=== PATIENT | male | born 1955 | race Caucasian/White ===

== ENCOUNTER 2019-10-18 17:51 | Inpatient (IN) | payer MEDICARE, OTHER ==
[~2019-10-18] VITALS: Ht 170.2 cm; Wt 81.6 kg
[2019-10-18] MEDS ORDERED: AMLO5TAB9 PO (18:26)
[2019-10-18] MEDS ORDERED: IBUP-1955 PO (18:26)
[2019-10-18] MEDS ORDERED: LORA-259 PO (18:26)
[2019-10-18] MEDS ORDERED: SERT50TA PO (18:26)
[2019-10-18] MEDS ORDERED: LOSA100T31 PO (18:26)
[2019-10-18] MEDS ORDERED: MELO-107 PO (18:26)
[2019-10-18] MEDS ORDERED: DIVA-76 PO (18:26)
[2019-10-18] MEDS ORDERED: QUET300T2 PO (18:26)
[2019-10-18 19:02] LABS: BASOPHILS # (AUTO) 0.1 /CMM (0.0-0.2); BASOPHILS % (AUTO) 1.2 % (0.0-2.0); EOSINOPHILS % (AUTO) 2.8 % (0.0-6.0); HEMATOCRIT 31 % (39-51); LYMPHOCYTES # (AUTO) 1.8 /CMM (0.8-4.8); LYMPHOCYTES % (AUTO) 20.8 % (20.0-44.0); MEAN CORPUSCULAR HGB CONC 32 g/dl (31.0-36.0); MEAN CORPUSCULAR VOLUME 88 fL (80-96); MONOCYTES # (AUTO) 0.6 /CMM (0.1-1.30); NEUTROPHILS % (AUTO) 68.2 % (43.0-81.0); PLATELET COUNT (AUTO) 265 /CMM (150-450); RED BLOOD CELL COUNT(AUTO) 3.59 MIL/uL (4.5-6.0); WHITE BLOOD COUNT (AUTO) 8.8 K/uL (4.3-11.0)
[2019-10-18 19:14] LABS: CALCIUM, SERUM 8.9 mg/dL (8.5-10.1); CREATININE 0.7 mg/dL (0.6-1.3); POTASSIUM 4.2 mmol/L (3.5-5.1); SALICYLATE 2.2 mg/dL (2.8-20.0)
[2019-10-18] MEDS ORDERED: QUETIAPINE FUMARATE 100 MG TABLET PO SCH (19:30)
[2019-10-18] MEDS ORDERED: QUETIAPINE FUMARATE 25 MG TABLET ONE (19:37)
--- NOTE | 2019-10-18 19:45 | NUR ---
PT BIB [facility] FOR MEDICAL EVAL FOR [facility] ADMIT. ON 5150 FOR DTO/GD. PT YELLING UPON ARRIVAL. PT ALERT AND AWAKE, NO ACUTE DISTRESS NOTED. CONNECTED TO THE MONITOR AND POX
--- NOTE | 2019-10-18 20:25 | NUR ---
BED ASSIGNMENT 214-2
--- NOTE | 2019-10-18 20:32 | NUR ---
REPORT GIVEN TO LIANET MATT
[2019-10-18 20:42] LABS: APPEARANCE,URINE Clear (CLEAR); BILIRUBIN,URINE Negative (NEGATIVE); BLOOD, URINE Negative Ery/uL (NEGATIVE); COLOR,URINE Yellow (YELLOW); KETONES,URINE Negative (NEGATIVE); LEUKOCYTE ESTERASE ,URINE Negative (NEGATIVE); NITRITE, URINE Negative (NEGATIVE); PH,URINE 7.5 (5.0-8.0); PROTEIN,URINE Negative (NEGATIVE); UGLUCOSE Negative (NEGATIVE); UROBILINOGEN,URINE 0.2 EU/dL (0.2)
--- NOTE | 2019-10-18 21:23 | NUR ---
PT TRANSFERRED TO [facility] IN STABLE CONDITION
[2019-10-18] MEDS ORDERED: ACETAMINOPHEN 325 MG TABLET PO PRN (22:00)
[2019-10-18] MEDS ORDERED: MAGNESIUM HYDROXIDE 30 ML UDC PO PRN (22:00)
[2019-10-18] MEDS ORDERED: MAG HYDROX/AL HYDROX/SIMETH 30 ML UDC PO PRN (22:00)
[2019-10-18] MEDS ORDERED: IBUPROFEN 600 MG TABLET PO PRN (23:00)
[2019-10-18] MEDS ORDERED: BLOOD SUGAR DIAGNOSTIC 1 EACH STRIP IN ONE (23:00)
[2019-10-18 23:17] VITALS: BP 129/74
--- NOTE | 2019-10-18 23:26 | NUR ---
ADMISSION NOTES: ADMITTED THIS 64Y/O MALE PATIENT ADMIT FROM [facility] / [facility] FROM [facility], ADMITTED TO [facility] ON 5150 HOLD, PER HOLD GRAVELY DISABLE , DTO, AND ACTING OUT AGGRESSIVE TOWARDS STAFF AND OTHER RESIDENTS, PT HAS BEEN CONFUSED THREATENING TOWARDS OTHERS .PT. HAS BEEN REFUSING CARE FROM CAREGIVERS, PT. HAS TROUBLE FOLLOWING STAFF INSTRUCTUSIONS ,UPON FACE TO FACE ASSESSMENT PATIENT IS A&O X2 , AGGRESSIVE ,DISHELVED,PARNOID, CONFUSED , ,DISORGNIZED, UNCOOPERTIVE ,EASILY GETS AGITATED, DENIES SI /HI AT THIS TIME, PT. IS POOR HISTORIAN, POOR INSIGHT ,POOR JUDGEMENT , PT. REFUSED TO SIGNS ADMISSION CONSENT PAPERS , DUE TO CONFUSED/ UNCOOPERATIVE, PT. REFUSED INTITAALY BLOOD SUGAR CHECK , ENCOURAGED, EXPLAINED RISKS AND BENEFITS STILL REFUSED, PER PT. I DONT WANTS CHECK AT THIS TIME , PT. REFUSED FULL BODY SKIN ASSESSMENT AND PICTURES TAKEN,ENCOUARGED X3 EXPLINED RISKS AND BENEFITS STILL REFUSED ,BOTH MD AWARE AND NOTIFIED OF THE ADMISSION, BELONGINGS CONTRABAND WERE DONE , NURSING ASSESSMENT DONE ,PT. RIGHTS DISCUSS BY PUBLIC INFORMATION RELATIONS MANAGER , PROVIDE THE PT. WITH HANDBOOK, AND MEDICATIONS GUIDE, ENVIRONMENTAL SAFETY CHECK DONE, ENCOURAGED PT. VERBALIZED ANY FEELING CONCERN TO STAFF, ORIENT TO UNIT POLICY, NO ACUTE DISTRESS NOTED,VITAL SIGNS WNL ,DENIES ANY PAIN AT THIS TIME,WILL CONTINUE TO MONITOR FOR Q15 SAFETY AND BEHAVIOR.
--- NOTE | 2019-10-19 06:18 | NUR ---
[facility]PS RN CLOSING NOTE: PATIENT RESTING IN BED ASLEEP, AROUSES EASILY. NO ACUTE DISTRESS NOTED. DENIES PAIN OR DISCOMFORT.UNCOOPERTIVE, NO AGITATION NOTED AT THIS TIME/ BUT EASILY AGITAED. DENIES SI/HI/AVH AT THIS TIME. SAFETY PRECAUTIONS IMPLEMENTED.ENCOURAGED PT. TO VERBALIZED ANY FEELING, WILL CONTINUE TO MONITOR FOR PT'S SAFETY AND BEHAVIOR.
[2019-10-19 07:12] VITALS: BP 125/74
--- NOTE | 2019-10-19 07:21 | NUR ---
RN NOTES: PT. REFUSED CHEST -XAY, ENCOURAGED X 3 EXPLINED RISKS AND BENEFITS , STILL REUSED , ENDORSE TO AM NURESE FOR CONTINUITY OF CARE.
--- NOTE | 2019-10-19 07:23 | NUR ---
RN NOTES: PT. REFUSED CHEST -XAY, ENCOURAGED X 3 EXPLINED RISKS AND BENEFITS , STILL REUSED , ENDORSE TO AM RN FOR CONTINUITY OF CARE.
[2019-10-19 08:00] VITALS: BP 118/73
[2019-10-19] MEDS: AMLODIPINE BESYLATE 5 MG TABLET PO SCH (09:00)
[2019-10-19] MEDS: LOSARTAN POTASSIUM 50 MG TABLET PO SCH (09:00)
[2019-10-19] MEDS: NICOTINE PATCH (21MG) 21 MG PATCH.TD24 TD SCH (09:00)
[2019-10-19] MEDS: LORAZEPAM 0.5 MG TABLET PO PRN (10:33)
--- NOTE | 2019-10-19 10:33 | NUR ---
RN NOTE- AGITATION/ PT ANXIOUS, RESTLESS IN ROOM. ATIVAN 0.5 MG GIVEN
[2019-10-19] MEDS: MELOXICAM 7.5 MG TABLET PO SCH (11:18)
--- NOTE | 2019-10-19 11:18 | NUR ---
RN NOTE- ALEXIS UNAVAILABLE IN [facility] AT 9AM. CALLED PHARMACY AND THEY SAID THEY'D REFILL. PHARMACY JUST DELIVERED. ADMINISTERED LATE FOR THIS REASON.
[2019-10-19] MEDS: DIVALPROEX SODIUM 250 MG TABLET.DR PO SCH ×3 (13:09→16:57)
[2019-10-19 16:00] VITALS: BP 134/83
[2019-10-19 20:14] VITALS: BP 146/86
[2019-10-19] MEDS: QUETIAPINE FUMARATE 100 MG TABLET PO SCH (20:40)
--- NOTE | 2019-10-20 06:46 | NUR ---
GPS RN NOTE PT REFUSED SKIN CHECK AND LABS. SLEPT MOST OF THE NIGHT, WITHDRAWN, LABILE. WILL CONTINUE TO MONITOR AND ENDORSE TO AM NURSE.
[2019-10-20] MEDS: MELOXICAM 7.5 MG TABLET PO SCH (08:42)
[2019-10-20] MEDS: LOSARTAN POTASSIUM 50 MG TABLET PO SCH (08:43)
[2019-10-20] MEDS: DIVALPROEX SODIUM 250 MG TABLET.DR PO SCH ×3 (08:43→17:00)
[2019-10-20] MEDS: AMLODIPINE BESYLATE 5 MG TABLET PO SCH (08:43)
[2019-10-20] MEDS: NICOTINE PATCH (21MG) 21 MG PATCH.TD24 TD SCH (08:43)
--- NOTE | 2019-10-20 13:10 | NUR ---
Facility Contact: [facility] called [facility] ([phone]) and spoke to the admissions department who stated that the pt can return to the facility once he is discharged from the hospital.
--- NOTE | 2019-10-20 13:39 | NUR ---
Psychosocial Assessment: SW attempted to complete the psychosocial assessment with the pt but pt became irritated when the SW attempted to check the pts orientation level. Pt refused to answer the rest of the SW's questions and told her to "get out and do not bother me again."
--- NOTE | 2019-10-20 15:08 | NUR ---
Family Contact: RAMY called the pts sister, Colin ([phone]), and conducted the psychosocial with her. RAMY also discussed the pts discharge plan for the pt to return to the facility once he is stable for discharge.
--- NOTE | 2019-10-20 16:32 | NUR ---
Initial Discharge Plan: Pt currently resides at [facility] located at [address] [place] [address]; ([phone]). Per pt's sister, Colin ([phone]), the pt will return to the facility. RAMY will work with the MD and the pt regarding appropriate discharge planning. SW will form a safe and proper discharge.
--- NOTE | 2019-10-20 17:00 | NUR ---
RN NOTE-MED REFUSAL/ PT HAS BEEN OFF AND ON MED COMPLIANT THE LAST TWO DAYS. HE TAKES PSYCHIATRIC RX PERIODICALLY AND AT OTHER TIMES FLATLY REFUSES. DR FALL AWARE OF NON MED COMPLIANCE. DISCUSSED W PT.
--- NOTE | 2019-10-20 19:54 | NUR ---
GPS RN OPENING NOTES: PATIENT RESTING IN HIS BED, EASILY AGITED ,DISHELVED ,PARANOID DENIES SI/HI/AVH AT THIS TIME,.ENCOURAGED FOR VERBALIZATION OF FEELINGS, SAFETY PRECAUTIONS IMPLEMENTED. INTERACT WITH ENGAGED, WILL CONTINUE TO MONITOR Q15MIN ROUNDS FOR SAFETY AND BEHAVIOR.
[2019-10-20] MEDS: QUETIAPINE FUMARATE 100 MG TABLET PO SCH (20:03)
--- NOTE | 2019-10-21 05:27 | NUR ---
RN NOTES: PT. REFUSED AM LABS, ENCOURAGE X3 EXPLINED RISKS AND BENEFITS STILL REFUSED.
--- NOTE | 2019-10-21 06:28 | NUR ---
GPS RN CLOSING NOTE: PATIENT IN BED ASLEEP,COMFORTABLY, NO ACUTE DISTRESS NOTED. DENIES PAIN OR DISCOMFORT. NO AGITATION NOTED. NO BEHAVIOR PROBLEMS NOTED ,DENIES SI/HI/AVH AT THIS TIME. SAFETY PRECAUTIONS IMPLEMENTED.ALL NEEDS ATTENDED AND ANTICIPATED, ENCOURGED FOR VERBALIZED ANY FEELING ,BED ALARM ON AND IN LOCKED POSITION. WILL CONTINUE TO MONITOR FOR PT'S SAFETY.
--- NOTE | 2019-10-21 07:06 | NUR ---
RN NOTES: PT. REFUSED CHEST -XAY, ENCOURAGED X 3 EXPLINED RISKS AND BENEFITS , STILL REUSED , ENDORSE TO AM RN FOR CONTINUITY OF CARE.
[2019-10-21] MEDS: NICOTINE PATCH (21MG) 21 MG PATCH.TD24 TD SCH (09:00)
[2019-10-21] MEDS: DIVALPROEX SODIUM 250 MG TABLET.DR PO SCH ×3 (09:02→16:07)
[2019-10-21] MEDS: MELOXICAM 7.5 MG TABLET PO SCH (09:02)
[2019-10-21] MEDS: AMLODIPINE BESYLATE 5 MG TABLET PO SCH (09:12)
[2019-10-21] MEDS: LOSARTAN POTASSIUM 50 MG TABLET PO SCH (09:13)
[2019-10-21 16:00] VITALS: BP 133/73
--- NOTE | 2019-10-21 16:24 | NUR ---
Group Note: Group Note: SW encouraged pt to attend group therapy on 10/21/19 at 2pm discussing aggressive behaviors and triggers. Pt refused to talk to the SW and shouted, "I told you that I did not want to talk to you."
[2019-10-21 20:00] VITALS: BP 118/73
[2019-10-21] MEDS: QUETIAPINE FUMARATE 100 MG TABLET PO SCH (20:44)
--- NOTE | 2019-10-21 21:57 | NUR ---
[facility]PS OPENING NOTE: PATIENT AWAKE, ALERT AND ORIENTED X 2, CALM, COOPERATIVE, ISOLATIVE, WITHDRAWN, PARANOID, MED COMPLIANT, NO AGITATION AT THIS TIME, OFFERED SNACKS, ENCOURAGE TO VERBALIZE FEELINGS, WILL CONTINUE TO MONITOR Q15 MINS FOR SAFETY
[2019-10-22 08:00] VITALS: BP 119/92
[2019-10-22] MEDS: MELOXICAM 7.5 MG TABLET PO SCH (08:57)
[2019-10-22] MEDS: DIVALPROEX SODIUM 250 MG TABLET.DR PO SCH ×3 (08:57→16:30)
[2019-10-22] MEDS: LOSARTAN POTASSIUM 50 MG TABLET PO SCH (08:58)
[2019-10-22] MEDS: AMLODIPINE BESYLATE 5 MG TABLET PO SCH (08:58)
[2019-10-22] MEDS: NICOTINE PATCH (21MG) 21 MG PATCH.TD24 TD SCH (08:58)
[2019-10-22] MEDS ORDERED: QUETIAPINE FUMARATE 25 MG TABLET PO SCH (09:00)
--- NOTE | 2019-10-22 14:02 | NUR ---
Group Note: SW invited the patient to attend group therapy on 10/22/2019 at 1 pm to discuss what they would like to see change as a result of their stay in [facility]. The patient declined and stated " Please leave me alone".
[2019-10-22 16:00] VITALS: BP 134/80
[2019-10-22] MEDS: QUETIAPINE FUMARATE 100 MG TABLET PO SCH (20:17)
[2019-10-22 20:47] VITALS: BP 154/82
[2019-10-23 08:00] VITALS: BP 135/78
[2019-10-23] MEDS: AMLODIPINE BESYLATE 5 MG TABLET PO SCH (08:45)
[2019-10-23] MEDS: NICOTINE PATCH (21MG) 21 MG PATCH.TD24 TD SCH (08:45)
[2019-10-23] MEDS: LOSARTAN POTASSIUM 50 MG TABLET PO SCH (08:45)
[2019-10-23] MEDS: DIVALPROEX SODIUM 250 MG TABLET.DR PO SCH ×3 (08:45→17:18)
[2019-10-23] MEDS: MELOXICAM 7.5 MG TABLET PO SCH (08:45)
--- NOTE | 2019-10-23 09:48 | NUR ---
[facility]PS RN OPENING NOTE: RECEIVED PATIENT IN BED. COOPERATIVE WITH MEDICATION ADMINSITRATION. ISOLATIVE, WITHDRAWN, REFUSING TO COMMUNICATE. DID ANSWER MY QUESTIONS REGARDING SI/HI AND VAH. DENIES SI/HI AND VAH. PATIENT DOES NOT APPEAR TO SHOW ANY SIGNS OF DISTRESS. BREATHING IS EVEN AND UNLABORED. BED IS FLAT WITH 2 SIDE RAILS UP AND LOCKED. WILL CONTINUE TO MONITOR Q15 FOR SAFETY, MOOD AND BEHAVIOR
[2019-10-23 16:00] VITALS: BP 151/81
[2019-10-23 20:18] VITALS: BP 101/63
[2019-10-23] MEDS: TEMAZEPAM 7.5 MG CAPSULE PO PRN (21:28)
[2019-10-23] MEDS: QUETIAPINE FUMARATE 100 MG TABLET PO SCH (21:28)
[2019-10-24 08:00] VITALS: BP 125/85
[2019-10-24] MEDS: DIVALPROEX SODIUM 250 MG TABLET.DR PO SCH ×3 (08:27→16:42)
[2019-10-24] MEDS: MELOXICAM 7.5 MG TABLET PO SCH (08:28)
[2019-10-24] MEDS: AMLODIPINE BESYLATE 5 MG TABLET PO SCH (08:28)
[2019-10-24] MEDS: LOSARTAN POTASSIUM 50 MG TABLET PO SCH (08:28)
[2019-10-24] MEDS: NICOTINE PATCH (21MG) 21 MG PATCH.TD24 TD SCH (08:33)
--- NOTE | 2019-10-24 10:42 | NUR ---
Probable Cause (PC) Hearing: RAMY called the pts sister, Colin ([phone]), and left a voicemail that informed her that the pt has a hearing today and what the hearing entails. RAMY also informed her that the pts MD is recommending that the pt be transferred to a SNF before going back to the assisted living.
[2019-10-24] MEDS: QUETIAPINE FUMARATE 25 MG TABLET PO SCH ×2 (12:33→16:42)
--- NOTE | 2019-10-24 15:54 | NUR ---
GROUP THERAPY: SW encouraged pt to participate in group therapy discussing "suicidal ideation." Pt refused and did not acknowledge SW being in his room. SW will continue to encourage pt to attend group milieu.
[2019-10-24 16:00] VITALS: BP 111/71
--- NOTE | 2019-10-24 19:57 | NUR ---
PT RECEIVED LYING IN THE BED SLEEPING QUIETLY, CONTINUE TO MONITOR PT Q15 MIN FOR ANY MEGGAN.
[2019-10-24 20:34] VITALS: BP 112/72
[2019-10-24] MEDS: QUETIAPINE FUMARATE 100 MG TABLET PO SCH (20:38)
[2019-10-24] MEDS: LORAZEPAM 0.5 MG TABLET PO PRN (20:38)
--- NOTE | 2019-10-24 20:45 | NUR ---
GPS HOUSEPERSON NOTES: C/O OF ANXIETY PT C/O ANXIETY, GIVEN HIS PRN MEDS ATIVAN 0.5 MG, WILL CONTINUE TO MONITOR PT.
--- NOTE | 2019-10-24 22:00 | NUR ---
GPS CIRCLE SAW OPERATOR NOTES: INSOMNIA PT IS COMPLAINING THAT HE CAN'T GO BACK TO SLEEP, ASK PT IF HE WANTS HIS PRN MEDS FOR INSOMNIA, GIVEN RESTORIL 7.5 MG AND CONTINUE TO MONITOR PT.
[2019-10-24] MEDS: TEMAZEPAM 7.5 MG CAPSULE PO PRN (22:18)
[2019-10-25] MEDS: LOSARTAN POTASSIUM 50 MG TABLET PO SCH (08:11)
[2019-10-25] MEDS: AMLODIPINE BESYLATE 5 MG TABLET PO SCH (08:11)
[2019-10-25] MEDS: MELOXICAM 7.5 MG TABLET PO SCH (08:13)
[2019-10-25] MEDS: DIVALPROEX SODIUM 250 MG TABLET.DR PO SCH ×3 (08:13→16:55)
[2019-10-25] MEDS: NICOTINE PATCH (21MG) 21 MG PATCH.TD24 TD SCH (08:15)
[2019-10-25] MEDS: QUETIAPINE FUMARATE 25 MG TABLET PO SCH ×3 (08:15→16:55)
[2019-10-25 08:57] VITALS: BP 100/60
--- NOTE | 2019-10-25 10:37 | NUR ---
GPS/RN-NOTES PATIENT REFUSED LAB DRAWN DESPITE FEW ATTEMPTS.
[2019-10-25 16:00] VITALS: BP 126/76
--- NOTE | 2019-10-25 20:00 | NUR ---
[facility]PS RN NOTES PT AGITATED AT THIS TIME. VERBALLY ABUSIVE TO PLASTIC EYE TECHNICIAN. PT REFUSED TO HAVE VS TAKEN AT THIS TIME. REDIRECTED PT TO BED. WILL CONTINUE TO MONITOR FOR SAFETY AND BEHAVIOR.
[2019-10-25] MEDS: QUETIAPINE FUMARATE 100 MG TABLET PO SCH (20:14)
[2019-10-25 21:08] VITALS: BP 132/107
[2019-10-25] MEDS: TEMAZEPAM 7.5 MG CAPSULE PO PRN (21:12)
[2019-10-26 08:00] VITALS: BP 109/54
[2019-10-26] MEDS: QUETIAPINE FUMARATE 25 MG TABLET PO SCH ×3 (08:05→16:49)
[2019-10-26] MEDS: MELOXICAM 7.5 MG TABLET PO SCH (08:05)
[2019-10-26] MEDS: DIVALPROEX SODIUM 250 MG TABLET.DR PO SCH ×3 (08:05→16:49)
[2019-10-26] MEDS: AMLODIPINE BESYLATE 5 MG TABLET PO SCH (08:06)
[2019-10-26] MEDS: LOSARTAN POTASSIUM 50 MG TABLET PO SCH (08:06)
[2019-10-26] MEDS: NICOTINE PATCH (21MG) 21 MG PATCH.TD24 TD SCH (08:07)
--- NOTE | 2019-10-26 09:00 | NUR ---
RN NOTE- PATIENT IS CALM AND DIRECTABLE THIS MORNING. MED COMPLIANT. NO BEHAVIORAL ISSUES. .WILL CONTINUE TO MONITOR Q15 MINS FOR BEHAVIOR AND SAFETY.
[2019-10-26 16:08] VITALS: BP 114/72
[2019-10-26 20:08] VITALS: BP 115/72
[2019-10-26] MEDS: QUETIAPINE FUMARATE 100 MG TABLET PO SCH (20:30)
--- NOTE | 2019-10-26 21:00 | NUR ---
[facility]PS RN NOTES: RECEIVED PATIENT, IN THE HALLWAY, AWAKE, AWAITING FOR SNACKS. NOTED TO BE UNKEMPT. GUARDED, UNPREDICTABLE. GETS EASILY AGITATED. REALITY ORIENTATION DONE. ADMINISTERED ORDERED MEDICATIONS. SAFETY AND FALL PRECAUTIONS OBSERVED. Q15 MIN CHECKS CONTINUED.PROVIDED SNACKS AND FLUIDS TOLERATED. WILL CONTINUE TO MONITOR PATIENT FOR MOOD SAFETY AND BEHAVIOR.
[2019-10-27] MEDS: AMLODIPINE BESYLATE 5 MG TABLET PO SCH (08:58)
[2019-10-27] MEDS: DIVALPROEX SODIUM 250 MG TABLET.DR PO SCH ×3 (08:58→16:50)
[2019-10-27] MEDS: LOSARTAN POTASSIUM 50 MG TABLET PO SCH (08:58)
[2019-10-27] MEDS: QUETIAPINE FUMARATE 25 MG TABLET PO SCH ×3 (08:58→16:50)
[2019-10-27] MEDS: NICOTINE PATCH (21MG) 21 MG PATCH.TD24 TD SCH (08:59)
--- NOTE | 2019-10-27 09:00 | NUR ---
RN NOTE- ISOLATIVE YET PATIENT IS CALM AND DIRECTABLE THIS MORNING. MED COMPLIANT. NO BEHAVIORAL ISSUES. .WILL CONTINUE TO MONITOR Q15 MINS FOR BEHAVIOR AND SAFETY.
[2019-10-27] MEDS: MELOXICAM 7.5 MG TABLET PO SCH (09:02)
--- NOTE | 2019-10-27 09:19 | NUR ---
SNF Referral: RAMY faxed a referral to [facility] with attn to TIFFANIE and Braulio to the fax number: [phone].
[2019-10-27 16:00] VITALS: BP 124/77
[2019-10-27] MEDS: QUETIAPINE FUMARATE 100 MG TABLET PO SCH (20:10)
[2019-10-27 20:50] VITALS: BP 114/77
--- NOTE | 2019-10-28 06:53 | NUR ---
REFUSED AM LABS PATIENT REFUSED AM LABS DESPITE OF RISKS & BENEFITS EXPLANATIONS.
[2019-10-28 08:00] VITALS: BP 121/65
--- NOTE | 2019-10-28 08:24 | NUR ---
Family Contact: RAMY called the pts sister, Colin ([phone]), and informed her that the pt is going to be discharged today to [facility]. RAMY stated that she would inform the previous facility where the pt came from that he will be returning after his stay at the SNF.
--- NOTE | 2019-10-28 08:31 | NUR ---
Facility Contact: [facility] called [facility] ([phone]) and spoke to Andrew in the Admissions department. RAMY informed her that the pt is going to be discharged to a SNF today and she stated that she wants the pt to be placed at [facility]. She stated that she would prefer the pt to be placed in a SNF that they have a relationship and that the discharge should be held until they have time to place the pt in facility they work with. RAMY stated that the pt will be discharged at 11 and if they find a bed by then the SW will speak to the pts MD about this placement change.
[2019-10-28] MEDS: NICOTINE PATCH (21MG) 21 MG PATCH.TD24 TD SCH ×2 (08:45→09:00)
[2019-10-28] MEDS: QUETIAPINE FUMARATE 25 MG TABLET PO SCH ×2 (08:45→12:25)
[2019-10-28] MEDS: MELOXICAM 7.5 MG TABLET PO SCH (08:45)
[2019-10-28] MEDS: DIVALPROEX SODIUM 250 MG TABLET.DR PO SCH ×2 (08:45→12:25)
[2019-10-28] MEDS: LOSARTAN POTASSIUM 50 MG TABLET PO SCH (08:45)
[2019-10-28 08:46] VITALS: BP 121/65
[2019-10-28] MEDS: AMLODIPINE BESYLATE 5 MG TABLET PO SCH (08:46)
--- NOTE | 2019-10-28 09:23 | NUR ---
Facility Contact: Melisa from [facility] ([phone]) contacted the SW and spoke to her in an aggressive manner regarding the pts discharge. She stated that the pt is their patient and that she is refusing to have the pt be discharged to a facility that she does not have any connections with. She stated that she has had this issue with this unit before. RAMY stated that she had just been told by the MD the previous day to send a referral to [facility] and that the SW was informed this morning that the pt would be discharged. RAMY stated that she called the facility right after speaking with the pts sister and that she spoke to Andrew who had also mentioned the same thing and so the SW is already working with her on getting the pt placed at [facility]. Melisa stated that she was going to speak to the pts family member and let her know that their facility does not have a connection with the facility that the SW is planning on sending the pt to which is [facility]. RAMY stated that she is attempting to work with them on their request.
--- NOTE | 2019-10-28 09:33 | NUR ---
Facility Contact: RAMY received a call from Dana ([phone]) from [facility] and she stated that she would like the SW to fax an inquiry to them to the fax number: [phone]. RAMY faxed the referral.
--- NOTE | 2019-10-28 09:34 | NUR ---
Family Contact: Pts sister, Colin ([phone]), called the SW and stated that she received a call from Melisa stating that [facility] does not have a connection with [facility] and that Melisa knows all the facilities around the area and knows the pt best so the sister requested that the SW attempt to send the pt to the facility of their choice. RAMY stated that she is currently working on it.
--- NOTE | 2019-10-28 09:36 | NUR ---
Facility Contact: SW received a call from Clarita ([phone]) from [facility] who stated that they received the referral and that her DON is reviewing it at this time.
--- NOTE | 2019-10-28 10:14 | NUR ---
Facility Contact: [facility] ([phone]) called the SW and stated that the SW can discharge the pt to [facility].
--- NOTE | 2019-10-28 10:16 | NUR ---
Family Contact: Pts sister, Colin ([phone]), and informed her that the pt is going to be discharged to [facility].
--- NOTE | 2019-10-28 14:05 | NUR ---
Discharge Note: Pt was discharged to [facility] located at [address] [place] [address]; . Pt was transported via [facility] at 2PM. Pts sister, Colin ([phone]), was contacted regarding placement. Upon discharge, the pt appeared to be in a depressed mood and presented with a distressed affect. Pt denied both suicidal and homicidal ideation as well as auditory and visual hallucinations. Pt will be under the care of psychiatrist, Dr. Ward, located at [address] [place] [address], [address] [address]; and rig site engineer, Dr. Gutierrez, [address] [place] [address]; .
--- NOTE | 2019-10-28 17:04 | NUR ---
RN NOTE : PATIENT ALERT ,VERBALLY RESPONSIVE ,MED COMPLIANT ,DENIES SI/HI/AVH .ALL BELONGINGS RETURNED TO PATIENT REPORT [facility] TO [facility] , DR. FALL AND KELSIE CENTREX RADIO OPERATOR AWARE OF DISCHARGE PATIENT DISCHARGE WITH AMBULANCE AT 1400.
== END 2019-10-28 14:00 | DRG 885 ==
LOC: ER 17:53 → GPS 20:47
PROVIDERS: ADMIT Psychiatry & Neurology Psychosomatic Medicine; ATTEND Nurse Practitioner Acute Care
DX: F25.0 Schizoaffective disorder, bipolar type (principal); N17.0 Acute kidney failure with tubular necrosis; F29 Unspecified psychosis not due to a substance or known physiological condition; D63.8 Anemia in other chronic diseases classified elsewhere; I10 Essential (primary) hypertension; E78.5 Hyperlipidemia, unspecified; E86.0 Dehydration; K21.9 Gastro-esophageal reflux disease without esophagitis; Z82.49 Family history of ischemic heart disease and other diseases of the circulatory system
CPT/HCPCS: 36415; 80048-TC; 80305; 81000-TC; 85025-TC; 87081-TC; G0480